=== PATIENT | male | born 1975 | race Caucasian/White ===

== ENCOUNTER 2017-08-16 10:43 | Day surgery (SDC) | payer OTHER ==
[2017-08-16] VITALS (13 sets, daily range): BP systolic 135–155; BP diastolic 65–95
[~2017-08-16] VITALS: Ht 188 cm; Wt 106.1 kg
[~2017-08-16 10:43] MED LIST: NKM; ceFAZolin sod 1 GM in NS 55 ML IVPB ONE; celeBREX 200mg Cap **SURGERY PATIENTS ONLY ORAL ONE; oxyCONTIN 20mg tab ORAL ONE
[2017-08-16] MEDS ORDERED: Morphine Sulfate PF 10 ML ONE (11:08)
[2017-08-16] MEDS ORDERED: Ketorolac 30mg Inj ONE (11:08)
[2017-08-16] MEDS ORDERED: Bupivacaine 0.5% Inj 30 ml vial INJ ONE (11:08)
[2017-08-16] MEDS ORDERED: Kenalog-40 1ml Vial ONE (11:08)
[2017-08-16] MEDS ORDERED: EPINEPHrine 1mg/1ml Amp ONE ×2 (11:09→14:30)
[2017-08-16] MEDS ORDERED: Ropivacaine 5mg/ml Vial 30ml INJ ONE (11:28)
[2017-08-16] MEDS ORDERED: LR 1000ml 1,000 ML IVLG SCH (11:51)
--- NOTE | 2017-08-16 11:55 | Immediate Post-Op Evaluation ---
Immediate Post-Op Evalulation Immediate Post-Op Evalulation Procedure: L Hip Arthroscopy witth Labral Repair Date of Evaluation: Aug 16, 2017 Time of Evaluation: 15:47 IV Fluids: 1000 LR Blood Products: 0 Estimated Blood Loss: 10 Urinary Output: 0 Blood Pressure Systolic: 149 Blood Pressure Diastolic: 88 Pulse Rate: 71 Respiratory Rate: 16 O2 Sat by Pulse Oximetry: 100 Temperature (Fahrenheit): 97.9 Pain Score (1-10): 2 Nausea: No Vomiting: No Patient Status: awake, reacts Hydration Status: adequate Dru Grams Ancef IV Given Within 1 Hr of Incision: Yes Time Given: 12:56 Rolly Gutiérrez MD Aug 16, 2017 11:55
[2017-08-16] MEDS ORDERED: Midazolam 2mg/2ml Inj IVP PRN (12:00)
[2017-08-16] MEDS ORDERED: fentaNYL 100 mcg/2 mL IV PRN (12:00)
[2017-08-16] MEDS ORDERED: Hydromorphone 0.5mg/0.5ml inj IVP PRN (12:00)
[2017-08-16] MEDS ORDERED: Ketorolac 30mg Inj IV PRN ×2 (12:00)
[2017-08-16] MEDS ORDERED: LORazepam Inj 2mg/ml 1ml IV PRN (12:00)
[2017-08-16] MEDS ORDERED: DiphenhydrAMINE 50mg/ml Inj IVP PRN (12:00)
[2017-08-16] MEDS ORDERED: Atropine Inj 1mg/10ml Syr IV PRN (12:00)
[2017-08-16] MEDS ORDERED: Acetaminophen (Non formulary) 100 ML IV ONE (12:00)
[2017-08-16] MEDS ORDERED: Labetalol 5mg/ml 20ml vial IV PRN (12:00)
[2017-08-16] MEDS ORDERED: Norco 5mg/325mg tab ORAL PRN ×2 (12:00→18:01)
[2017-08-16] MEDS ORDERED: HYDROcodone/Acetamin 7.5/325 tab ORAL PRN (12:00)
[2017-08-16] MEDS ORDERED: oxyCODONE HCL/Acetaminophen 5/325mg ORAL PRN (12:00)
[2017-08-16] MEDS ORDERED: Dexamethasone 4mg/ml vial ONE (12:45)
[2017-08-16] MEDS ORDERED: LR 1000ml ONE (12:45)
[2017-08-16] MEDS ORDERED: Lidocaine 1% MPF 10mg/ml 5ml ONE (12:45)
[2017-08-16] MEDS ORDERED: Glycopyrrolate 0.2mg/ml 1ml Vial ONE (12:45)
[2017-08-16] MEDS ORDERED: Zemuron 50mg/5ml Inj IV ONE (12:45)
[2017-08-16] MEDS ORDERED: NS Irrig 1000ml ONE (12:45)
[2017-08-16] MEDS ORDERED: Neostigmine 1mg/ml 10ml Inj ONE (12:45)
[2017-08-16] MEDS ORDERED: Propofol 200mg/20ml IV ONE (12:45)
[2017-08-16] MEDS ORDERED: fentaNYL 100 mcg/2 mL IV ONE ×2 (12:45)
--- NOTE | 2017-08-16 12:47 | Pre-Procedure Note/Attestation ---
Pre-Procedure Note/Attestation Complete Prior to Procedure Planned Procedure: left Procedure Narrative: hip arthroscopy, labral repair Indications for Procedure Pre-Operative Diagnosis: left hip labral tear Attestation I attest that I discussed the nature of the procedure; its benefits; risks and complications; and alternatives (and the risks and benefits of such alternatives ), prior to the procedure, with the patient (or the patient's legal artist's representative). I attest that, if there was a reasonable possibility of needing a blood transfusion, the patient (or the patient's legal artist's representative) was given the [facility] standardized written summary, pursuant to the Radu Harshal Blood Safety Act ([place] Health and Safety Code # 1645, as amended). I attest that I re-evaluated the patient just prior to the surgery and that there has been no change in the patient's H&P, except as documented below: ESME SHEN Aug 16, 2017 12:47
--- NOTE | 2017-08-16 12:48 | Operative Note - PDOC ---
Operative Note Operative Note Pre-op Diagnosis: left hip labral tear Procedure: left hip arthroscopy Operative Findings: consistent w/pre-op dx studies Anesthesia: general Specimen: none Complications: none Condition: stable Estimated Blood Loss: none Implant(s) used?: Yes ESME SHEN Aug 16, 2017 12:47
--- NOTE | 2017-08-16 13:42 | Anethesia Preoperative Eval ---
Anesthesia Pre-op PMH/ROS General Date of Evaluation: Aug 16, 2017 Time of Evaluation: 12:41 Anesthesiologist: Marla ASA Score: ASA 3 Mallampati Score Class I : Soft palate, uvula, fauces, pillars visible Class II: Soft palate, uvula, fauces visible Class III: Soft palate, base of uvula visible Class IV: Only hard plate visible Mallampati Classification: Class II Surgeon: Juan Diagnosis: L Hip Pain Surgical Procedure: L Hip Arthroscopy witth Labral Repair Anesthesia History: none Social History: smoking, current smoker Family History: no anesthesia problems Allergies: Coded Allergies: No Known Allergies (Unverified , 08/16/17) Medications: see eMAR Past Medical History Cardiovascular: Reports: HTN Gastrointestinal/Genitourinary: Reports: GERD Neurologic/Psychiatric: Reports: depression/anxiety, other - Seizures, L Subdural Hematoma Musculoskeletal/Integumentary: Reports: other - Gout Anesthesia Pre-op Phys. Exam Physician Exam Last Vital Signs Date Time Temp Pulse Resp B/P (MAP) Pulse Ox O2 Delivery O2 Flow Rate FiO2 08/16/17 11:57 97.4 73 18 144/89 98 Room Air 97.4 Constitutional: NAD Neurologic: CN 2-12 intact Cardiovascular: RRR Respiratory: CTA Gastrointestinal: S/NT/ND Airway Exam Mallampati Score: Class II MO: full ROM: full Teeth: intact Anesthesia Pre-op A/P Risk Assessment & Plan Assessment: ASA 3 Plan: GA, BIS, Glidescope, L Lumbar Plexus Block Status Change Before Surgery: No Pre-Antibiotics Dru Grams Ancef IV Given Within 1 Hr of Incision: Yes Time Given: 12:56 Rolly Gutiérrez MD Aug 16, 2017 13:42
[2017-08-16] MEDS ORDERED: Duramorph PF 10mg/10ml amp EPIDUR ONE (15:00)
--- NOTE | 2017-08-16 16:33 | Diagnostic Imaging Report ---
Indication: Left hip arthroscopy Technique: Fluoroscopic images from orthopedic procedure Operating surgeon: Juan Total fluoroscopy time: 28.8 seconds Fluoroscopy dose: 3.69 mGy/[id number] Comparison: None Findings: 2 fluoroscopic images from left hip arthroscopy submitted for archival the PACS. Initial image demonstrates the left hip without evidence of fracture or dislocation. Subsequent image demonstrates surgical Asherman's projecting over the left hip with air in the joint related to arthroscopy. Impression: Fluoroscopic images from left hip arthroscopy as above. Please see operative report.
--- NOTE | 2017-08-16 16:33 | Diagnostic Imaging Report ---
Indication: Left hip arthroscopy Technique: Fluoroscopic images from orthopedic procedure Operating surgeon: Juan Total fluoroscopy time: 28.8 seconds Fluoroscopy dose: 3.69 mGy/[id number] Comparison: None Findings: 2 fluoroscopic images from left hip arthroscopy submitted for archival the PACS. Initial image demonstrates the left hip without evidence of fracture or dislocation. Subsequent image demonstrates surgical Asherman's projecting over the left hip with air in the joint related to arthroscopy. Impression: Fluoroscopic images from left hip arthroscopy as above. Please see operative report.
[2017-08-16] MEDS ORDERED: D5 1/2NS 1,000 ML IV SCH (18:01)
[2017-08-16] MEDS ORDERED: Tylenol #3 tab (300mg/30mg) ORAL PRN (18:01)
[2017-08-16] MEDS ORDERED: HYDROmorphone 1mg/ml Carpuject SUBQ PRN (18:01)
[2017-08-16] MEDS ORDERED: oxyCONTIN 20mg tab ORAL ONE (18:15)
--- NOTE | 2017-08-17 01:00 | Operative Note - Dictated ---
DATE OF OPERATION: 08/16/2017 PREOPERATIVE DIAGNOSIS: Left hip anterior labral tear. POSTOPERATIVE DIAGNOSIS: Left hip anterior labral tear. PROCEDURES: 1. Left hip arthroscopic labral repair. 2. Left hip synovectomy. SURGEON: Segundo Martinez M.D. ANESTHESIA: General with lumbar plexus block. INDICATION FOR PROCEDURE: The patient is a pleasant gentleman, who has had progressive anterior hip pain. He had MRI, which showed a tear of the anterior labrum. He failed conservative treatment, elected to undergo left hip arthroscopy and labral repair. Risks, limitations, expectations, and complications of procedure were discussed in detail. All questions were addressed. DESCRIPTION OF PROCEDURE: An informed consent was obtained. The patient was brought to the operating room and placed under lumbar plexus general anesthesia. The patient was then carefully placed on the fracture table. Using fluoroscopic imaging, traction was placed on the hip for distraction. Once the adequate distraction was obtained, the left hip was prepped and draped in a sterile manner. Ancef was administered. Traction time was then started. Spinal was then placed along the lateral aspect of the hip into the hip joint was confirmed using xray. A guidewire was then placed along the dilators along with a cane was placed for the anterior and lateral portal. Once that was completed under direct visualization anteromedial working portal was established. Camera was then placed through the second portal and under direct visualization using electrocautery the capsule released posteriorly. Once that was done, the camera was placed in the anterolateral portal and capsulectomy was performed using electrocautery. Once adequate capsulectomy was performed allowing adequate distention of the hip joint. At this point, the labrum was assessed. There is no significant chondral damage in the acetabulum or femoral head. There was bruising along the anterior superior hip labrum as well as fraying and tearing. Shaver was then used to debride some of the torn labrum. The rectus head was reflected off to the superior acetabulum. At this point, an arthroscopic anchor was placed in the posterior aspect of the labrum. Anteriorly, there was some calcification on the labrum making labral base fixation difficult. Therefore, a simple knot was placed. Once these 2 anchors were placed, it was felt that was adequate fixation given the calcification of the anterior labrum, it was felt that additional attempts would be unsuccessful. At this point, the camera was removed. The skin was closed using 3-0 Monocryl sutures. Intraarticular injection containing 0.25% Marcaine with epinephrine, 30 mg of Toradol, 5 mL of Duramorph, 40 mg of Kenalog was injected. The patient was awoken and taken to recovery room with stable vital signs. ESTIMATED BLOOD LOSS: None. COMPLICATIONS: None. SPECIMENS: None. IMPLANTS: Include 2 Arthrex PushLock anchors. Segundo Martinez M.D. DR: KIM JOB#: [id number] CC: TADEO
--- NOTE | 2017-08-17 08:26 | Diagnostic Imaging Report ---
Indication: Pain, status post left hip arthroscopy Technique: One view of the pelvis Comparison: none Findings: Small amount of gas is in the soft tissues medial to the left proximal femur. No acute fractures. No dislocations. There is mild narrowing of the hip joints bilaterally. Impression: Small amount of gas in the soft tissues of the medial thigh, presumably related to recent surgical exposure. Bilateral degenerative changes No acute bony trauma
--- NOTE | 2017-08-17 12:17 | 48 Hour Post Anesthesia Eval ---
Post Anesthesia Evaluation Procedure: L Hip Arthroscopy witth Labral Repair Date of Evaluation: Aug 16, 2017 Time of Evaluation: 17:56 Blood Pressure Systolic: 135 0: 78 Pulse Rate: 66 Respiratory Rate: 16 Temperature (Fahrenheit): 97.8 O2 Sat by Pulse Oximetry: 98 Airway: patent Nausea: No Vomiting: No Pain Intensity: 6 - Severe pain of ankle, non operative site Hydration Status: adequate Cardiopulmonary Status: Stable Mental Status/LOC: other - Crying Follow-up Care/Observations: 0 Post-Anesthesia Complications: 0 Follow-up care needed: ready to discharge Rolly Gutiérrez MD Aug 17, 2017 12:16
[2017-08-17 12:19] VITALS: BP 135/78
== END 2017-08-16 18:50 | disposition home or self-care (01) ==
LOC: SUR 10:43
DX: S73.102A Unspecified sprain of left hip, initial encounter (principal); I10 Essential (primary) hypertension; K21.9 Gastro-esophageal reflux disease without esophagitis; F17.200 Nicotine dependence, unspecified, uncomplicated; F32.9 Major depressive disorder, single episode, unspecified; F41.9 Anxiety disorder, unspecified; G40.909 Epilepsy, unspecified, not intractable, without status epilepticus; X58.XXXA Exposure to other specified factors, initial encounter; Y93.9 Activity, unspecified; Y92.9 Unspecified place or not applicable
CPT/HCPCS: 29863; 29916; 72170; 73501; 76000; 97161; C1713; J0171; J0690; J1100; J1170; J1885; J2250; J2274; J2405; J2704; J2710; J2795; J3010; J3301; J3490; J7120; 94003; 94150

== ENCOUNTER 2018-07-19 05:14 | Inpatient (IN) | payer OTHER ==
[~2018-07-19] VITALS: Ht 188 cm; Wt 103.0 kg
[2018-07-19] VITALS (12 sets, daily range): BP systolic 88–133; BP diastolic 41–92
[~2018-07-19 05:14] MED LIST changes: -ceFAZolin sod 1 GM in NS 55 ML IVPB ONE; -celeBREX 200mg Cap **SURGERY PATIENTS ONLY ORAL ONE; -oxyCONTIN 20mg tab ORAL ONE
[2018-07-19] MEDS ORDERED: Pantoprazole Inj IVP ONE (06:00)
[2018-07-19] MEDS ORDERED: Vancomycin 1gm/D5W 275ml IVPB ONE ×2 (06:00)
[2018-07-19] MEDS ORDERED: LISINOPRIL20 MG ORAL (06:10)
[2018-07-19] MEDS ORDERED: INDOCIN75 MG ORAL (06:10)
[2018-07-19] MEDS ORDERED: METFORMIN HCL500 M1 ORAL (06:10)
[2018-07-19] MEDS ORDERED: ALLOPURINOL300 M1 ORAL (06:10)
[2018-07-19] MEDS ORDERED: LR 1000ml 1,000 ML IVLG SCH (06:24)
--- NOTE | 2018-07-19 06:25 | Anethesia Preoperative Eval ---
Anesthesia Pre-op PMH/ROS General Date of Evaluation: Jul 19, 2018 Time of Evaluation: 07:14 Anesthesiologist: Marla ASA Score: ASA 3 Mallampati Score Class I : Soft palate, uvula, fauces, pillars visible Class II: Soft palate, uvula, fauces visible Class III: Soft palate, base of uvula visible Class IV: Only hard plate visible Mallampati Classification: Class II Surgeon: Marylu Diagnosis: Back Pain Surgical Procedure: TLIF L5-S1, L4-5, Decompression Anesthesia History: none Social History: current smoker Family History: no anesthesia problems Allergies: Coded Allergies: No Known Allergies (Unverified , 09/14/17) Medications: see eMAR Patient NPO?: Yes NPO Date: Jul 18, 2018 NPO Time: 2199 Past Medical History Cardiovascular: Reports: HTN, other - Pericarditis Pulmonary: Reports: MITRA Gastrointestinal/Genitourinary: Reports: GERD Neurologic/Psychiatric: Reports: other - L Subdural Hematoma, Seizures Endocrine: Reports: DM - FBS 136 Musculoskeletal/Integumentary: Reports: other - Gout Other: obesity PSxH Narrative: R Knee Sx-plate, screws, L Hip Labral Repair Anesthesia Pre-op Phys. Exam Physician Exam Last Vital Signs Date Time Temp Pulse Resp B/P (MAP) Pulse Ox O2 Delivery O2 Flow Rate FiO2 07/19/18 06:03 Room Air Constitutional: NAD Neurologic: CN 2-12 intact Cardiovascular: RRR Respiratory: CTA Gastrointestinal: S/NT/ND Airway Exam Mallampati Score: Class II MO: full ROM: full Teeth: intact Anesthesia Pre-op A/P Risk Assessment & Plan Assessment: ASA 3 Plan: GA, SED, GlideScope Go Status Change Before Surgery: No Pre-Antibiotics Dru Gram Vancomycin IV Given Within 1 Hr of Incision: Yes Time Given: 07:56 Rolly Gutiérrez MD Jul 19, 2018 06:25
[2018-07-19] MEDS ORDERED: HYDROcodone/Acetamin 7.5/325 tab ORAL PRN (06:30)
[2018-07-19] MEDS ORDERED: fentaNYL 100 mcg/2 mL IV PRN (06:30)
[2018-07-19] MEDS ORDERED: oxyCODONE HCL/Acetaminophen 5/325mg ORAL PRN (06:30)
[2018-07-19] MEDS ORDERED: Acetaminophen (Non formulary) 100 ML IV ONE ×2 (06:30→14:00)
[2018-07-19] MEDS ORDERED: Metoclopramide 10mg/2ml Inj IVP PRN (06:30)
[2018-07-19] MEDS ORDERED: Norco 5mg/325mg tab ORAL PRN ×2 (06:30→16:01)
[2018-07-19] MEDS ORDERED: Hydromorphone 0.5mg/0.5ml inj IVP PRN (06:30)
[2018-07-19] MEDS ORDERED: DiphenhydrAMINE 50mg/ml Inj IVP PRN (06:30)
[2018-07-19] MEDS ORDERED: Atropine Sulfate 0.4mg/ml inj IVP PRN (06:30)
[2018-07-19] MEDS ORDERED: Ketorolac 30mg Inj IV PRN ×2 (06:30)
[2018-07-19] MEDS ORDERED: Midazolam 2mg/2ml Inj IVP PRN (06:30)
[2018-07-19] MEDS ORDERED: LORazepam Inj 2mg/ml 1ml IV PRN (06:30)
[2018-07-19] MEDS ORDERED: Meperidine 50mg/ml Inj(FOR RIGORS ONLY) IVP PRN (06:30)
[2018-07-19] MEDS ORDERED: Vancomycin 1gm vial IVPB ONE ×2 (06:31→10:53)
[2018-07-19] MEDS ORDERED: Zemuron 50mg/5ml Inj IV ONE ×2 (06:31→08:52)
[2018-07-19] MEDS ORDERED: Pantoprazole Inj ONE (06:31)
[2018-07-19] MEDS ORDERED: fentaNYL 100 mcg/2 mL IV ONE ×2 (07:07→09:37)
[2018-07-19] MEDS ORDERED: Heparin 1000 units/ml 1ml Vial ONE (07:10)
[2018-07-19] MEDS ORDERED: Bacitracin Oint 15gm Tube TOPIC ONE (07:10)
[2018-07-19] MEDS ORDERED: Lidocaine 1% MPF 10mg/ml 5ml ONE (07:11)
[2018-07-19] MEDS ORDERED: Thrombin 5000 units TOPIC ONE ×2 (07:11→07:13)
[2018-07-19] MEDS ORDERED: Dexamethasone 4mg/ml vial ONE (07:11)
[2018-07-19] MEDS ORDERED: Gelfoam Size TOPIC ONE (07:11)
[2018-07-19] MEDS ORDERED: Bacitracin 50000 Units Vial ONE ×2 (07:12→11:09)
[2018-07-19] MEDS ORDERED: Bupivacaine w/Epi 0.5% 30ml Vial INJ ONE (07:12)
[2018-07-19] MEDS ORDERED: Thrombin 5000 units spray kit TOPIC ONE (07:12)
[2018-07-19] MEDS ORDERED: Lidocaine 1% Plain 30 ml INJ ONE ×3 (07:13→11:09)
--- NOTE | 2018-07-19 07:19 | Immediate Post-Op Evaluation ---
Immediate Post-Op Evalulation Immediate Post-Op Evalulation Procedure: TLIF L5-S1, L4-5, Decompression Date of Evaluation: Jul 19, 2018 Time of Evaluation: 13:07 IV Fluids: 800 LR500 Blood Products: 500 5% Albumin Estimated Blood Loss: 150 Urinary Output: 50 Blood Pressure Systolic: 100 Blood Pressure Diastolic: 41 Pulse Rate: 79 Respiratory Rate: 16 O2 Sat by Pulse Oximetry: 100 Temperature (Fahrenheit): 97.9 Pain Score (1-10): 2 Nausea: No Vomiting: No Complications 0 Patient Status: awake, reacts, patent, extubated, none Hydration Status: adequate Dru Gram Vancomycin IV Given Within 1 Hr of Incision: Yes Time Given: 07:56 Rolly Gutiérrez MD Jul 19, 2018 07:19
[2018-07-19] MEDS ORDERED: Propofol 1,000mg/ 100ml btl IV ONE (07:45)
[2018-07-19] MEDS ORDERED: NS Irrig 1000ml ONE (07:45)
[2018-07-19] MEDS ORDERED: LR 1000ml ONE (07:45)
[2018-07-19] MEDS ORDERED: Sterile Water Irrig 1000ml IRRIG ONE (07:45)
--- NOTE | 2018-07-19 07:45 | Pre-Procedure Note/Attestation ---
Pre-Procedure Note/Attestation Complete Prior to Procedure Planned Procedure: bilateral Procedure Narrative: Posterior lumbar decompression L4-5 and L5-S1, Interbody fusion L5-S1, Pedicle screw fixation L4 - S1, posterolateral arthrodesis, use of allograft, autograft and iliac crest bone marrow aspirate. Attestation I attest that I discussed the nature of the procedure; its benefits; risks and complications; and alternatives (and the risks and benefits of such alternatives ), prior to the procedure, with the patient (or the patient's legal technical sales representative). I attest that, if there was a reasonable possibility of needing a blood transfusion, the patient (or the patient's legal technical sales representative) was given the [place] [facility] standardized written summary, pursuant to the Radu Harshal Blood Safety Act ([place] Health and Safety Code # 1645, as amended). I attest that I re-evaluated the patient just prior to the surgery and that there has been no change in the patient's H&P, except as documented below: Betsy Valero MD Jul 19, 2018 07:45
[2018-07-19] MEDS ORDERED: Glycopyrrolate 0.2mg/ml 1ml Vial ONE ×2 (08:04→11:54)
[2018-07-19] MEDS ORDERED: Neostigmine 1mg/ml 10ml Inj ONE (11:54)
--- NOTE | 2018-07-19 13:38 | General Progress Note ---
Progress Note Progress Note Neurosurgery Post-op S/ Comfortable. No leg pain. O/ Vs. Last 24 Hour Vital Signs Date Time Temp Pulse Resp B/P (MAP) Pulse Ox O2 Delivery O2 Flow Rate FiO2 07/19/18 13:17 79 18 91/47 100 Simple Mask 8 07/19/18 13:05 73 18 88/46 100 Simple Mask 8 07/19/18 13:00 73 18 98/47 100 Simple Mask 8 07/19/18 12:57 79 16 100 07/19/18 12:56 97.9 76 18 100/41 100 Simple Mask 8 07/19/18 06:39 97.9 79 20 112/71 (85) 97 07/19/18 06:03 Room Air Alert and oriented x 4 Moves all extremities well Normal sensation in the extremities Drain minimal output Labs FSBG 138 Doing well Admit to floor after recovery Dr. Rose for internal medicine Betsy Valero MD Jul 19, 2018 13:38
--- NOTE | 2018-07-19 14:45 | NUR ---
nurse notes received patient from PACU via bed,s/p posterior lumbar decompression L4-L5, L5-S1,with dressing clean dry and intact,with hemovac in place and ice pack on going ,patient drowsy but easily arousable,, denies pain at this time, on going IVF on right hand infusing well, higgins cath to gravity draining well , v/s and neuro check monitored as ordered, instructed patient to be flat on bed until 4 pm, verbalized understanding,admission routine care rendered, oriented to the unit, plan of care was discussed verbalized understanding , 4 P's in progress ,call light w/n reach, at bedside .alessandro cabrera rn
--- NOTE | 2018-07-19 14:51 | Diagnostic Imaging Report ---
INDICATION: Pain, intraoperative TECHNIQUE: Intraoperative imaging Fluoroscopy time: 49.7 seconds Total dose: 0.69133 mGym2 Total number of images: 3 COMPARISON: None FINDINGS: Intraoperative images demonstrate apical clips posterior to the lower lumbar spine and upper sacral spine. Subsequent images demonstrate posterior fusion of what are presumably L4, L5, and S1, as well as placement of a disc spacer at L5-S1 IMPRESSION: Intraoperative imaging, as described
[2018-07-19] MEDS ORDERED: Lisinopril 20mg tab ORAL SCH (16:00)
[2018-07-19] MEDS ORDERED: Cyclobenzaprine 10mg Tab ORAL PRN (16:01)
[2018-07-19] MEDS: NovoLOG Insulin Flexpen SUBQ SCH ×2 (16:27→21:27)
[2018-07-19] MEDS: NS w/KCl 20mEq 1,000 ML IV SCH (16:43)
--- NOTE | 2018-07-19 17:00 | NUR ---
NURSE NOTES MECHANICAL APPLICATIONS ENGINEER NOTIFIED REGARDING LUMBAR BRACE AND STATED , WILL BRING HERE ROSEANNE
--- NOTE | 2018-07-19 17:01 | NUR ---
*-* CASE MANAGEMENT NOTES REFERRAL HAS BEEN SENT TO: ROBERT MCKENZIE P:[phone] F:[phone]
[2018-07-19] MEDS: HYDROmorphone 1mg/ml Carpuject IVP PRN ×2 (17:05→21:26)
[2018-07-19] MEDS: Acetaminophen (Non formulary) 100 ML IV SCH (17:07)
[2018-07-19] MEDS: metFORMIN 500mg tab ORAL SCH (17:10)
--- NOTE | 2018-07-19 17:22 | NUR ---
SHIELD RUNNER NOTES SPOKE WITH MADHU, BRACE WILL BE DELIVERED IN AM.WILL FOLLOW UP IN AM FOR ETA.
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
--- NOTE | 2018-07-19 19:28 | NUR ---
HAND-OFF: Report given to TYREE BRAMBILA.
[2018-07-19] MEDS: HYDROcodone/Acetamin 10/325 tab ORAL PRN (20:11)
--- NOTE | 2018-07-19 20:12 | NUR ---
NURSE NOTES: Patient in bed, awake, alert and verbally responsive. Able to make needs known. Respiration is even, on nasal cannula. Skin is warm and dry to touch. noted with iv site, if fluid is infusing as ordered. Noted with dressing on lower back with portable hemovac. Abdomen is soft and non distnended. Kept clean and comfortable. With higgins catheter. Will continue plan of care. Call light is at bedside.
--- NOTE | 2018-07-19 21:30 | NUR ---
Went to see patient explaining that he has a CPAP order at night, he stated that he was diagnosed MITRA few years ago and that he never wore the machine. He refused to wear one . TYREE Chaidez informed.
[2018-07-20] VITALS: BP 106/75
[2018-07-20] MEDS: Acetaminophen (Non formulary) 100 ML IV SCH ×2 (00:11→09:10)
[2018-07-20] MEDS: HYDROcodone/Acetamin 10/325 tab ORAL PRN ×4 (00:12→17:13)
[2018-07-20] MEDS: HYDROmorphone 1mg/ml Carpuject IVP PRN ×6 (01:21→23:23)
--- NOTE | 2018-07-20 01:51 | NUR ---
NURSE NOTES: Patient in bed, awake, complaining of pain 10/10, given PRN pain medication as ordered. New IV site inserted on the left hand, patent. Iv fluid is infusing as ordered.
[2018-07-20] MEDS: NS w/KCl 20mEq 1,000 ML IV SCH (03:50)
[2018-07-20 04:00] VITALS: BP 149/84
[2018-07-20] MEDS: metFORMIN 500mg tab ORAL SCH ×3 (05:55→17:13)
[2018-07-20] MEDS: NovoLOG Insulin Flexpen SUBQ SCH ×4 (05:56→20:41)
--- NOTE | 2018-07-20 06:23 | NUR ---
NURSE NOTES: Patient noted with passing gas. Charge nurse made aware. Call light is at bedside. Will continue plan of care.
--- NOTE | 2018-07-20 06:52 | 48 Hour Post Anesthesia Eval ---
Post Anesthesia Evaluation Procedure: TLIF L5-S1, L4-5, Decompression Date of Evaluation: Jul 20, 2018 Time of Evaluation: 06:00 Blood Pressure Systolic: 149 0: 84 Pulse Rate: 95 Respiratory Rate: 19 Temperature (Fahrenheit): 97.5 O2 Sat by Pulse Oximetry: 95 Airway: patent Nausea: No Vomiting: No Pain Intensity: 2 Hydration Status: adequate Cardiopulmonary Status: at baseline Mental Status/LOC: patient returned to baseline Post-Anesthesia Complications: 0 Follow-up care needed: N/A - further care as per primary team Rere Chase MD Jul 20, 2018 06:52
[2018-07-20 07:09] LABS: ANION GAP 9 mmol/L (5-15); BLOOD UREA NITROGEN 17 mg/dL (7-18); CALCIUM 8.2 MG/DL (8.5-10.1); CARBON DIOXIDE 26 MMOL/L (21-32); CHLORIDE 108 MMOL/L (98-107); CREATININE 1.4 MG/DL (0.55-1.30); POTASSIUM 3.9 MMOL/L (3.5-5.1); SODIUM 143 MMOL/L (136-145)
--- NOTE | 2018-07-20 07:33 | NUR ---
HAND-OFF: Report given to Vivek Tolliver.
--- NOTE | 2018-07-20 07:57 | NUR ---
NURSE NOTES: Pt in bed a/o x 4 in no acute distress. Patent left hand IV SL. Pt c/o pain to surgery site. Pt on SPR mattress to aid with comfort. Pt left in bed in low position, call light within reach, bed locked. Discussed with pt pain management plan, board updated.
[2018-07-20 08:00] VITALS: BP 114/76
[2018-07-20 12:00] VITALS: BP 129/70
--- NOTE | 2018-07-20 13:07 | NUR ---
REHAB MED PT NOTE CONSULT RECEIVED, MELY CMPLTED, PATIENT WILL BENEFIT FROM SKILLED PT DURING STAY FOR RETURN TO [facility]. RECOMMEND HOME AT [place]. RECOMMEND FWW AND RAISED TOILET SEAT. SPINAL PRECAUTIONS REVIEWED. QUICK DRAW LSO BRACE IN PLACE OOB. PATIENT TOLERATED WELL. PLAN OF CARE INITIATED. MIMI BULLARD PT DPT Addendum: 07/20/18 at 1308 by MIMI BULLARD PT Amended: Links added.
--- NOTE | 2018-07-20 15:48 | NUR ---
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 98.4 HR 75 RR 20 B/P 134/82 CR 1.4 IS: IVF LR IVF NS 2 100ML/HR ADMITTED TO MED/SURG POST OP8 MED/SURG STATUS
[2018-07-20 16:00] VITALS: BP 125/65
--- NOTE | 2018-07-20 19:23 | NUR ---
HAND-OFF: Report given to TYREE Mello. Pt left in stable condition, bed in low position, call light within reach, brace corcet in place, skid socks on, scd's on.
[2018-07-20 20:00] VITALS: BP 134/82
--- NOTE | 2018-07-20 20:01 | NUR ---
NURSE NOTES: Patient in bed, awake, alert. No complaint of pain or discomfort at the moment. IV site is patent. Kept clean and comfortable. Surgical sight is clean. Skin is intact, warm and dry to touch. Abdomen is soft and non distended. Call light is at bedside. Will continue plan of care.
--- NOTE | 2018-07-20 21:16 | General Progress Note ---
Progress Note Progress Note Neurosurgery POD #1 S/ Am,bulated with PT. Left leg pain improved. Tucker D/c'd and pt voided without difficulty. Tolerating po's O/ Vs Last 24 Hour Vital Signs Date Time Temp Pulse Resp B/P (MAP) Pulse Ox O2 Delivery O2 Flow Rate FiO2 07/20/18 20:00 99.5 87 17 134/82 (99) 95 07/20/18 19:26 99.2 07/20/18 17:45 99.2 07/20/18 16:00 98.5 69 19 125/65 (85) 95 07/20/18 12:00 99.2 83 19 129/70 (89) 99 07/20/18 09:39 98.8 07/20/18 09:10 98.8 07/20/18 09:00 Room Air 07/20/18 08:00 98.8 80 20 114/76 (89) 98 07/20/18 06:52 95 19 95 07/20/18 04:00 97.5 95 19 149/84 (105) 95 07/20/18 00:00 98.5 75 19 106/75 (85) 95 Alert and oriented x 4 Moves all extremities well Normal sensation iin the legs Motor 5/5 bilaterally Dressing changed and HV drain d/c'd without complication wound C/D/I Labs Na 143 K 3.9 Glu 110 ambulate brace at bedside. Pt wearing lumbar soft brace in bed pain control d/c planning internal medicine follow up as needed Betsy Valero MD Jul 20, 2018 21:16
[2018-07-21] VITALS: BP 141/70
[2018-07-21] MEDS: HYDROcodone/Acetamin 10/325 tab ORAL PRN (01:11)
[2018-07-21] MEDS ORDERED: TRAMADOL HCL50 MG ORAL (03:26)
[2018-07-21] MEDS ORDERED: CYCLOBENZAPRINE10 MG ORAL (03:28)
[2018-07-21 04:00] VITALS: BP 124/77
[2018-07-21] MEDS: metFORMIN 500mg tab ORAL SCH (05:37)
[2018-07-21] MEDS: HYDROmorphone 1mg/ml Carpuject IVP PRN ×2 (05:37→09:37)
[2018-07-21] MEDS: NovoLOG Insulin Flexpen SUBQ SCH (05:39)
--- NOTE | 2018-07-21 07:15 | NUR ---
HAND-OFF: Report given to TYREE Tolliver.
[2018-07-21 08:00] VITALS: BP 125/75
--- NOTE | 2018-07-21 08:04 | NUR ---
NURSE NOTES: Pt in bed a/o x 4 in no acute distress. Patent left hand IV SL. Pt on SPR mattress to aid with comfort. back brace at bedside. Dressing to lower back, no longer has hemovac on. Discussed with patient discharge plan. Pt left in bed in low position, call light within reach, bed locked. Discussed with pt pain management plan, board updated. Addendum: 07/21/18 at 1136 by Sharee Glover RN Neuro check performed at 0830 pt has intact sensation to bilateral legs, strength 5/5 ambulates with waker.
--- NOTE | 2018-07-21 09:18 | NUR ---
NURSE NOTES: Called Dr. Rose, notifed of creatine level 1.4, per him ok to give metformin 500mg inpatient. Pt cleared from wilfredo from his standpoint, pt to resume all home meds, gave name of medications one by one.
--- NOTE | 2018-07-21 11:31 | NUR ---
Pt discharged home in stable condition walking. Pt accompanied by friend. Pt left with lumbar brace, lumbar corcet, walker, raise tolet seat DME equipment, and all belongings. Pt hand delivered all instrunctions and Rx for tramadol/Flexeril. Pt educated to flu with Surgeon in two weeks, to report fever >101 or if he notes drainage from surgery site. Pt verbalized understanding, had no further questions.
--- NOTE | 2018-07-21 23:45 | Discharge Summary ---
DATE OF ADMISSION: 07/19/2018 DATE OF DISCHARGE: 07/21/2018 HISTORY: The patient is an unfortunate male, who was admitted to the hospital to undergo spine surgery. The patient underwent spine surgery with Dr. Valero without difficulty. Postoperatively, blood sugar was checked. Accu-Chek was done and the patient did well. Upon discharge, the patient was discharged home to have . While in the hospital, blood sugars was checked for diabetes and managed closely. Accu-Cheks was done. The patient will continue to follow up in due. We will monitor his blood sugars postop. Creatinine was checked postoperatively and was normal. Van Rose M.D. DR: CEM JOB#: [id number] CC:
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
== END 2018-07-21 10:20 | disposition home or self-care (01) | DRG 460 ==
LOC: SDSOVERFLO 05:14 → 3E 14:45
PROC: 07DR3ZZ Extraction of Iliac Bone Marrow, Percutaneous Approach (ICD-10-PCS; principal; 2018-07-19 07:30)
PROC: 0ST40ZZ Resection of Lumbosacral Disc, Open Approach (ICD-10-PCS; principal; 2018-07-19 07:30)
PROC: 0SG00AJ Fusion of Lumbar Vertebral Joint with Interbody Fusion Device, Posterior Approach, Anterior Column, Open Approach (ICD-10-PCS; principal; 2018-07-19 07:30)
DX: M51.16 Intervertebral disc disorders with radiculopathy, lumbar region (principal); M51.17 Intervertebral disc disorders with radiculopathy, lumbosacral region; S39.92XS Unspecified injury of lower back, sequela; V23.4XXS Motorcycle driver injured in collision with car, pick-up truck or van in traffic accident, sequela; I25.2 Old myocardial infarction; M10.9 Gout, unspecified; E66.3 Overweight; Z68.29 Body mass index [BMI] 29.0-29.9, adult
CPT/HCPCS: 36415; 72020; 76001; 80048; 82962; 86850; 86900; 86901; 87081; 94003; 94150; J1815; J2405; J2710